=== PATIENT | male | born 1960 | race Caucasian/White ===

== ENCOUNTER 2017-07-29 12:36 | Outpatient (CLI) | payer BC ==
--- NOTE | 2017-07-29 13:43 | CT ---
CT ARTERIOGRAM NECK WITH IV CONTRAST AND 3D MIP IMAGING: HISTORY: Carotid bruit. Vascular disease. FINDINGS: There is normal branching of the great vessels from the aortic arch with mild calcification. Good fl ow is demonstrated into each carotid and vertebral system. On the right, there is calcification at the carotid bifurcation resulting in moderate stenosis of the external carotid artery. The internal carotid artery is widely patent. On the left, the vessels are patent at the bifurcation. Approximately 1.9 cm from the bifurcation, t here is a focal area of severe plaque and calcification resulting in near-complete occlusion. Good f low is demonstrated into the more distal internal carotid artery. IMPRESSION: 1. Short-segment focus of critical stenosis within the mid left cervical internal carotid artery. P lease consider vascular intervention. 2. Otherwise, very little calcification or plaque. POS: [facility]
[2017-07-29] MEDS ORDERED: Iopamidol 370 76% 100 ML VIAL ONE (17:07)
== END 2017-07-29 12:37 | disposition home or self-care (01) ==
LOC: CT 12:36
PROVIDERS: ATTEND Internal Medicine Cardiovascular Disease
DX: R09.89 Other specified symptoms and signs involving the circulatory and respiratory systems (principal); I65.22 Occlusion and stenosis of left carotid artery
CPT/HCPCS: 70498

== ENCOUNTER 2017-08-05 09:09 | Inpatient (IN) | payer BC ==
[2017-08-05 09:45] LABS: #Basophils 0.1 thou/uL (0.0-0.2); #Eosinphils 0.2 thou/uL (0.0-0.7); #Lymphocytes 1.7 thou/uL (1.20-3.40); #Neutrophils 4.3 thou/uL (1.40-6.50); %Basophils 1.1 % (0.0-1.0); %Eosinophils 2.9 % (0.0-10.0); %Lymphocytes 23.1 % (21.0-51.0); %Monocytes 13.8 % (0.0-10.0); %Neutrophils 59.2 % (42.0-75.0); Hemoglobin 15.9 g/dL (14.0-18.0); Mean Corpuscular Hemoglobin 33.3 pg (27.0-31.0); Mean Corpuscular Volume 97.8 fl (80.0-94.0); Platelet Count 190 thou/uL (130-400); RBC Distribution Width 11.8 % (11.5-14.5); Red Blood Cell (RBC) Count 4.79 mill/uL (4.70-6.10); White Blood Cell (WBC) Count 7.2 thou/uL (4.8-10.8)
[2017-08-05 10:06] LABS: Anion Gap 9 mmol/L (10-20); BUN (Urea Nitrogen) 11 mg/dL (8.4-25.7); Calc. Creatinine Clearance 129 mL/min (70-130); Calcium 9.1 mg/dL (7.8-10.44); Carbon Dioxide 28 mmol/L (22-29); Chloride 108 mmol/L (98-107); Estimated GFR-MDRD Greater than 90; Glucose 100 mg/dL (70-105); Potassium 4.1 mmol/L (3.5-5.1); Sodium 141 mmol/L (136-145)
[2017-08-05] MEDS ORDERED: CEFAZOLIN/Water 2 GM/20 ML SYRINGE ONE (10:14)
[2017-08-05] MEDS ORDERED: Midazolam HCl 2 mg/2 ml Vial ONE (10:42)
[2017-08-05] MEDS ORDERED: Protamine Sulfate 50 MG/5 ML VIAL ONE (11:09)
[2017-08-05] MEDS ORDERED: Heparin 5,000 UNITS/ML VIAL ONE (11:09)
[2017-08-05] MEDS ORDERED: Fentanyl 100 MCG/2 ML VIAL ONE ×3 (11:36→15:26)
--- NOTE | 2017-08-05 13:09 | OP ---
PREOPERATIVE DIAGNOSIS: Left carotid stenosis. POSTOPERATIVE DIAGNOSIS: Left carotid stenosis. PROCEDURE PERFORMED: Left carotid endarterectomy with bovine patch. SURGEON: Dr. Cole. ANESTHESIA: General. ESTIMATED BLOOD LOSS: Under 100 mL. PROCEDURE IN DETAIL: After adequate anesthesia had been obtained, the head was turned to the right. Ultrasound was used to dayday the skin and the patient prepped and draped. Incision was then made and carried through the platysma rotating sternocleidomastoid muscle. Facial vein was ligated, clipped and divided. The jugular vein was rotated laterally. The hypoglossal nerve was not visualized. Vag us nerve was visualized and avoided. After heparinization, clamps were applied to the internal, exte rnal, and the common carotid artery. Arteriotomy performed beginning at the origin of the internal c arotid artery and extending distally through the plaque about 3 cm above the bifurcation. A 10-Frenc h shunt was then placed and there was excellent backbleeding. Endarterectomy was performed with sati sfactory tapering distally. Following completion of this, the area was thoroughly irrigated and any loose debris removed. A bovine patch was used to close the arteriotomy, following which, the shunt w as removed, vessels back flushed and forward flushed and the area was thoroughly irrigated with hepar in saline. Flow was then restored up the external and then internal carotid artery. Protamine was g iven to partially reverse the heparin and after obtaining good hemostasis, the wound was irrigated an d closed in layers.
[2017-08-05] MEDS ORDERED: Promethazine HCl 25 MG/ML VIAL SLOW IVP PRN (13:49)
[2017-08-05] MEDS ORDERED: Promethazine HCl 25 MG/ML VIAL IM PRN (13:49)
[2017-08-05] MEDS ORDERED: Ondansetron HCl/PF 4 MG/2 ML Vial IVP PRN ×2 (13:49→16:07)
--- NOTE | 2017-08-05 16:01 | EKG ---
Test Reason : PREOP Blood Pressure : / mmHG Vent. Rate : 061 BPM Atrial Rate : 061 BPM P-R Int : 000 ms QRS Dur : 150 ms QT Int : 486 ms P-R-T Axes : 000 -26 109 degrees QTc Int : 489 ms AV sequential or dual chamber electronic pacemaker When compared with ECG of 20-NOV-2011 08:06, Electronic ventricular pacemaker has replaced Sinus rhythm Confirmed by YEYO WAHL ([id number]) on 08/05/2017 4:00:49 PM Referred By: ATUL Confirmed By:YEYO WAHL
[2017-08-05] MEDS ORDERED: Acetaminophen 325 MG TAB PO PRN (16:07)
[2017-08-05] MEDS ORDERED: HYDROcodone/Acetaminophen 5/325 mg Tablet PO PRN (16:07)
[2017-08-05] MEDS ORDERED: Phenylephrine 10 MG/NS 250 ML 250 ML IVPB PRN (16:07)
[2017-08-05] MEDS ORDERED: Fentanyl 100 MCG/2 ML VIAL SLOW IVP PRN ×2 (16:07)
[2017-08-05] MEDS ORDERED: Sodium Chloride 0.9% 1,000 ML IV SCH (16:07)
[2017-08-05] MEDS ORDERED: hydrALAZINE 20 MG/ML VIAL SLOW IVP PRN (16:07)
[2017-08-05] MEDS ORDERED: Lidocaine 1% PF 5 ML VIAL ONE (17:04)
[2017-08-05] MEDS ORDERED: PROPOFOL 200 MG/20 ML VIAL ONE (17:04)
[2017-08-05] MEDS ORDERED: Heparin 10,000 UNITS/ 10 ML VIAL ONE (17:04)
[2017-08-05] MEDS ORDERED: Dexamethasone 20 MG/5 ML VIAL ONE (17:04)
[2017-08-05] MEDS ORDERED: Ondansetron HCl/PF 4 MG/2 ML Vial ONE (17:04)
[2017-08-05] MEDS: HYDROcodone/Acetaminophen 5/325 mg Tablet PO PRN ×2 (18:25→22:27)
[2017-08-05] MEDS: Carvedilol 25 MG TAB PO SCH (19:48)
[2017-08-05] MEDS ORDERED: Atorvastatin Calcium 40 MG TAB PO SCH (21:00)
[2017-08-05] MEDS: CEFAZOLIN/Water 2 GM/20 ML SYRINGE SLOW IVP SCH (22:28)
[2017-08-06] MEDS: CEFAZOLIN/Water 2 GM/20 ML SYRINGE SLOW IVP SCH (05:16)
[2017-08-06] MEDS: HYDROcodone/Acetaminophen 5/325 mg Tablet PO PRN (05:23)
--- NOTE | 2017-08-06 06:39 | DIS ---
HOSPITAL COURSE: The patient was admitted for elective left carotid endarterectomy. Postoperatively , he did well with no swelling and intact neurologic exam. He will be discharged home to 08/06/2017 to resume his home medicines, as well as with a prescription for tramadol as needed for pain. Discha rge and follow-up instructions have been given.
[2017-08-06] MEDS ORDERED: Clopidogrel Bisulfate 75 MG TAB PO SCH (09:00)
[2017-08-06] MEDS ORDERED: Aspirin 325 mg Enteric Coated Tablet PO SCH (09:00)
[2017-08-06] MEDS ORDERED: Lisinopril 10 MG TAB PO SCH (09:00)
[2017-08-06] MEDS: Carvedilol 25 MG TAB PO SCH (09:16)
[2017-08-06 09:17] VITALS: BP 136/83
[2017-08-06 10:25] VITALS: TEMP 98.5
== END 2017-08-06 10:20 | disposition home or self-care (01) | DRG 39 ==
LOC: SURG A 09:09 → CCU 17:28
PROVIDERS: ADMIT Thoracic Surgery (Cardiothoracic Vascular Surgery); ATTEND Thoracic Surgery (Cardiothoracic Vascular Surgery)
PROC: 03CL0ZZ Extirpation of Matter from Left Internal Carotid Artery, Open Approach (ICD-10-PCS; principal; 2017-08-05)
PROC: 03UL0KZ Supplement Left Internal Carotid Artery with Nonautologous Tissue Substitute, Open Approach (ICD-10-PCS; 2017-08-05)
DX: I65.22 Occlusion and stenosis of left carotid artery (principal); E78.2 Mixed hyperlipidemia; I65.29 Occlusion and stenosis of unspecified carotid artery; I25.10 Atherosclerotic heart disease of native coronary artery without angina pectoris
CPT/HCPCS: 36415; 80048; 85025; 93005; 93010; J1100; J1642; J1644; J2001; J2250; J2405; J2704; J2720; J3010

== ENCOUNTER 2017-12-22 06:42 | Day surgery (SDC) | payer BC ==
[2017-12-21 13:29] VITALS: BMI 29.7
--- NOTE | 2017-12-22 11:51 | OP ---
DATE OF PROCEDURE: 12/22/2017 SURGEON: Edison Simon M.D. PROCEDURE: Colonoscopy. ANESTHESIA: Premedication given per Anesthesiology Department. PREPROCEDURE DIAGNOSIS: Colon screening, average risk. POSTOPERATIVE DIAGNOSIS: Normal colon exam. PROCEDURE IN DETAIL: A written consent was obtained prior to procedure. After adequate sedation, a rectal exam was performed and was normal. Endoscope was advanced to the cecum. The quality of the b owel prep was good. The cecum, ascending colon, hepatic flexure, transverse colon, splenic flexure, descending colon, and rectosigmoid colon all appeared normal. Retroflexion in the rectal vault was n ormal. The patient tolerated the procedure well. ASSESSMENT: Normal colon exam. RECOMMENDATIONS: 1. Repeat colon screening in 10 years. 2. The patient is advised to inform of any change in bowel function or unusual bleeding.
[2017-12-22] MEDS ORDERED: PROPOFOL 200 MG/20 ML VIAL ONE (14:21)
== END 2017-12-22 10:37 | disposition home or self-care (01) ==
LOC: SDC 06:42
PROVIDERS: ATTEND Internal Medicine Gastroenterology
PROC: 0DJD8ZZ Inspection of Lower Intestinal Tract, Via Natural or Artificial Opening Endoscopic (ICD-10-PCS; principal; 2017-12-22)
DX: Z12.11 Encounter for screening for malignant neoplasm of colon (principal); I25.10 Atherosclerotic heart disease of native coronary artery without angina pectoris; K21.9 Gastro-esophageal reflux disease without esophagitis; Z88.2 Allergy status to sulfonamides; Z79.82 Long term (current) use of aspirin; Z79.899 Other long term (current) drug therapy
CPT/HCPCS: J2704

== ENCOUNTER 2018-09-16 07:42 | Observation (INO) | payer BC ==
--- NOTE | 2018-09-16 08:40 | RAD ---
PORTABLE CHEST: Date: 09/16/18 HISTORY: Chest pain. FINDINGS: Heart size is within normal limits for portable technique. An internal defibrillator device is presen t. The lungs are clear of infiltrates. There are no signs of failure. IMPRESSION: No active intrathoracic disease. POS: [facility]
[2018-09-16 08:51] LABS: Hemoglobin 15.5 g/dL (14.0-18.0); Mean Corpuscular HGB CONC 34.2 g/dL (32.0-36.0); Mean Corpuscular Hemoglobin 33.5 pg (27.0-31.0); Mean Platelet Volume 8.8 fL (7.4-10.4); Platelet Count 188 thou/uL (130-400); RBC Distribution Width 11.9 % (11.5-14.5); Red Blood Cell (RBC) Count 4.62 mill/uL (4.70-6.10); White Blood Cell (WBC) Count 8.8 thou/uL (4.8-10.8)
[2018-09-16 09:03] LABS: ALT (SGPT) 30 U/L (8-55); AST (SGOT) 28 U/L (5-34); Albumin 4.3 g/dL (3.5-5.0); Alkaline Phosphatase 48 U/L (40-150); Anion Gap 12 mmol/L (10-20); BUN (Urea Nitrogen) 12 mg/dL (8.4-25.7); Bilirubin, Total 0.5 mg/dL (0.2-1.2); CK (CPK) 131 U/L (30-200); Calc. Creatinine Clearance 0 mL/min (70-130); Calcium 9.6 mg/dL (7.8-10.44); Carbon Dioxide 27 mmol/L (22-29); Chloride 106 mmol/L (98-107); Estimated GFR-MDRD 86; Globulin 2.3 g/dL (2.4-3.5); Glucose 100 mg/dL (70-105); Lipase 81 U/L (8-78); Potassium 4.3 mmol/L (3.5-5.1); Protein, Total 6.6 g/dL (6.0-8.3); Sodium 141 mmol/L (136-145)
[2018-09-16 09:37] LABS: Band 4 % (5-11); Lymphocytes 21 % (21-51); MDiff Complete? YES; Monocytes 8 % (0-10); Neutrophil 67 % (42-75); Platelet Morphology Comment Appears Adequate
[2018-09-16 12:09] LABS: Troponin I Less than 0.010 ng/mL (< 0.028)
[2018-09-16 15:07] LABS: Troponin I Less than 0.010 ng/mL (< 0.028)
[2018-09-16] MEDS ORDERED: Acetaminophen 325 MG TAB PO PRN (15:30)
[2018-09-16] MEDS ORDERED: Ondansetron ODT 4 MG TAB PO PRN (15:30)
[2018-09-16] MEDS ORDERED: Nitroglycerin 0.4 MG TAB (25 Tab Bottle) PO PRN (15:30)
[2018-09-16] MEDS ORDERED: Ondansetron PF 4 MG/2 ML Vial IVP PRN (15:30)
[2018-09-16 16:40] VITALS: BMI 29.8
[2018-09-16] MEDS: Famotidine 20 MG TAB PO SCH (20:50)
[2018-09-16] MEDS: Carvedilol 25 MG TAB PO SCH (20:50)
[2018-09-16] MEDS: Lisinopril 10 MG TAB PO SCH (20:50)
[2018-09-16] MEDS ORDERED: Atorvastatin Calcium 40 MG TAB PO SCH (21:00)
--- NOTE | 2018-09-17 00:23 | HP ---
PRIMARY CARE PHYSICIAN: Dr. Lavell Wright. PRIMARY REMOTE CONTROL ASSEMBLER: Dr. Mclean. CHIEF COMPLAINT: Chest pain. HISTORY OF PRESENT ILLNESS: Mr. Martin is a pleasant 57-year-old male with past medical history of myocardial infarction, CAD with stents to the LAD back in 2006, hypertension, hyperlipidemia, and chronic systolic heart failure, who had presented to [facility] ER earlier today after he experienced some chest pain that had radiated to left scapula early this morning. He states chest pain started around 7:00 a.m. this morning when he was sitting at his desk at work. He states that this chest pain was similar to the chest pain that he had back in 2006 when he had his [place]. Workup in the emergency department included an EKG, which remained unchanged. Serial troponins were found to be negative x3. His chest pain and also back pain spontaneously resolved. He states prior to coming into the ER, he had taken a dose of his home aspirin 325 mg. Therefore, this was held in the emergency department. The patient has a history of AICD in place, he was also referred to Dr. Vargas in [place] regarding a possible heart transplant in the future. He states that he underwent heart catheterization with Dr. Mclean roughly 2 years ago, which showed no further vessel disease. He states that he also underwent an echocardiogram about 6 months ago, which showed an improved ejection fraction of about 30% to 35%. He also reports a history of carotid endarterectomy in July 2017 and no further complaints since. He had denied any headache, blurred vision, dizziness, currently he had denied any chest pain, shortness of breath, abdominal pain. No nausea or vomiting. He had also denied any numbness, tingling, or weakness in upper and lower extremities and also denies any edema. He states he has been taking his home medications as directed with no recent changes. Cardiology Services, Dr. Barger was then consulted due to the patient's strong cardiac history. However, due to the patient's unchanged EKG and normal troponins, Dr. Barger determined that the patient would undergo a stress test in the morning with further workup pending stress test. The patient will be admitted under observation and placed on telemetry overnight and he will be continued on his home medications with further changes as needed. REVIEW OF SYSTEMS: All other systems reviewed and found to be negative unless mentioned in HPI. PAST MEDICAL HISTORY: Myocardial infarction, CAD with stent to the LAD, hypertension, hyperlipidemia, and chronic systolic heart failure. PAST SURGICAL HISTORY: AICD placement, stent placement to LAD, carotid endarterectomy, bilateral eye surgery, and appendectomy. PAST PSYCHIATRIC HISTORY: None. PAST SOCIAL HISTORY: The patient denies any tobacco use, however, does admit to drinking about 1 to 2 drinks per day and denies any further illicit drug use. KNOWN ALLERGIES: Sulfa. CURRENT HOME MEDICATIONS: 1. Lisinopril 10 mg p.o. b.i.d. 2. Clopidogrel 75 mg p.o. daily. 3. Carvedilol 25 mg p.o. b.i.d. 4. Atorvastatin 40 mg p.o. at bedtime. 5. Aspirin 325 mg p.o. daily. PHYSICAL EXAMINATION: VITAL SIGNS: BP 157/79, pulse 64, respirations 16, temp 98.1 degrees Fahrenheit, and O2 saturations 95% on room air. GENERAL: The patient is awake, alert, and oriented x3. No acute distress noted. HEENT: Atraumatic and normocephalic. Pupils are round and reactive to light. Extraocular muscles intact. Moist mucous membranes noted. Oropharynx is clear without exudates or erythema. NECK: Soft and supple. Surgical scar noted on the left side. Nontender. CARDIOVASCULAR: Positive S1 and S2. Regular rate and rhythm. No murmur auscultated. RESPIRATORY: Clear to auscultation bilaterally. No wheezes, rales, or rhonchi. ABDOMEN: Soft and nontender. Bowel sounds present. No rebound. No rigidity noted. MUSCULOSKELETAL: Strength 5+ bilaterally upper and lower extremities. Moves all extremities equal. No edema noted. NEUROLOGIC: Cranial nerves 2 through 12 grossly intact. No focal deficits noted. Speech intact and normal. Gait not assessed. SKIN: Warm, dry, and intact. No rashes. No lesions. Surgical scar noted on left side of neck. PSYCHIATRIC: Good mood and affect. LABORATORY DATA: WBC 8.8, RBC 4.62, hemoglobin 15.5, and platelet 188. Sodium 141, potassium 4.3, anion gap 12, BUN 12, creatinine 0.91, estimated GFR 86, and glucose 100. Troponin 0.010 x3. DIAGNOSTIC IMAGING: Chest x-ray showed no acute intrathoracic disease. ASSESSMENT AND PLAN: 1. Chest pain. The patient will be placed on telemetry, serial troponins found to be negative x3. The patient with no EKG changes. AICD in place. We will obtain printout from his AICD for further evaluation. Cardiology Service is notified and Dr. Barger recommended stress test in the a.m., depending on stress test further workup pending. 2. History of myocardial infarction and coronary artery disease with stent to the left anterior descending, continue on the patient's home regimen. 3. Chronic systolic heart failure. Continue home regimen. 4. History of hypertension, currently stable. Continue on the patient's home regimen and monitor vital signs closely. 5. Hyperlipidemia. Continue on the patient's home statin. We will check a lipid panel in the a.m. 6. Code status. Full code. DISPOSITION: Pending further workup and clinical findings. If the patient is stable on monitor, with normal findings on AICD and a normal stress test in the morning, the patient will likely be discharged with close outpatient followup with his PCP and primary sugar plantation manager, Dr. Mclean as outpatient. Job ID: [id number]
[2018-09-17 07:12] LABS: #Basophils 0.1 thou/uL (0.0-0.2); #Eosinphils 0.2 thou/uL (0.0-0.7); #Lymphocytes 1.9 thou/uL (1.20-3.40); #Monocytes 1.1 thou/uL (0.11-0.59); #Neutrophils 4.6 thou/uL (1.40-6.50); %Basophils 1.3 % (0.0-1.0); %Eosinophils 2.2 % (0.0-10.0); %Monocytes 14.1 % (0.0-10.0); %Neutrophils 58.5 % (42.0-75.0); Hemoglobin 15.1 g/dL (14.0-18.0); Mean Corpuscular HGB CONC 34.2 g/dL (32.0-36.0); Mean Corpuscular Hemoglobin 33.8 pg (27.0-31.0); Mean Corpuscular Volume 99.1 fL (78.0-98.0); Mean Platelet Volume 8.5 fL (7.4-10.4); Platelet Count 182 thou/uL (130-400); RBC Distribution Width 11.9 % (11.5-14.5); Red Blood Cell (RBC) Count 4.45 mill/uL (4.70-6.10); White Blood Cell (WBC) Count 7.9 thou/uL (4.8-10.8)
[2018-09-17 07:38] LABS: Anion Gap 8 mmol/L (10-20); BUN (Urea Nitrogen) 10 mg/dL (8.4-25.7); Calc. Creatinine Clearance 120 mL/min (70-130); Calcium 9.1 mg/dL (7.8-10.44); Carbon Dioxide 30 mmol/L (22-29); Cardiac Risk 3.2 (Less than 4.5); Chloride 106 mmol/L (98-107); Cholesterol 142 mg/dl (< 200 Desired); Estimated GFR-MDRD Greater than 90; Glucose 90 mg/dL (70-105); HDL Cholesterol 44 mg/dL (>60 Neg Risk); LDL Cholesterol, Calculated 66 mg/dL; Potassium 4.3 mmol/L (3.5-5.1); Sodium 140 mmol/L (136-145); Triglycerides 160 mg/dL (Less than 150)
[2018-09-17] MEDS: Famotidine 20 MG TAB PO SCH (08:15)
[2018-09-17] MEDS: Lisinopril 10 MG TAB PO SCH (08:15)
[2018-09-17] MEDS ORDERED: Enoxaparin Sodium 40 MG/0.4 ML SYRINGE SC SCH (09:00)
[2018-09-17] MEDS ORDERED: Aspirin 325 mg Enteric Coated Tablet PO SCH (09:00)
[2018-09-17] MEDS ORDERED: Clopidogrel Bisulfate 75 MG TAB PO SCH (09:00)
[2018-09-17] MEDS ORDERED: ADENOSINE 60 MG/20 ML VIAL ONE (09:16)
--- NOTE | 2018-09-17 13:01 | NM ---
[facility] Cardiac myocardial perfusion SPECT Ejection fraction study Wall motion study: 09/17/2018 HISTORY: 57-year-old male with prior myocardial infarction, coronary artery disease, congestive heart failure, hypertension, and dyslipidemia, presents with chest pain. TECHNIQUE: Number of days: 1 Rest study: 9.5 mCi of technetium 99m-sestamibi. Pharmacologic stress: 48.2 mg adenosine Stress study: 30.0 mCi technetium 99m-sestamibi. FINDINGS: Cardiac (myocardial perfusion) SPECT: There is a large, contiguous fixed defect involving the anterior wall, anteroseptal, septal, and apic al regions consistent with scar/infarction. No reversible perfusion defect is identified. Ejection fraction study: Left ventricular ejection fraction is 20% Wall motion study: Global hypokinesis. IMPRESSION: 1. Large infarction/scar involving much of the left ventricular myocardium. 2. Very low left ventricular ejection fraction of 20%. 3. Diffuse, severe hypokinesis. 4. No reversible ischemia identified.
[2018-09-17] MEDS: Carvedilol 25 MG TAB PO SCH (13:22)
[2018-09-17 16:07] VITALS: BP 143/83; TEMP 98.6
--- NOTE | 2018-09-22 14:28 | STRESS ---
Acquisition Time: 2018-09-17 10:08:37 Total Exercise Time: 00:04:00 Test Indications: CHEST PAIN Medications: Protocol: ADENOSINE Max HR: 080 BPM 49% of Pred: 162 BPM Max BP: 140/078 mmHG Max Work Load: 1.0 METS RESTING ECG: VENTRICULAR PACED AT 63 BPM SYMPTOMS: FLUSHED NORMAL BP RESPONSE ECTOPY: OCCASIONAL PVC'S ECG STRESS: NO SIGNIFICANT CHANGES INTERPRETATION: INDETERMINATE ECG/AWAIT NUCLEAR IMAGES FOR DEFINITIVE DIAGNOSIS Confirmed by JEREMY ALVAREZ ELLEN ([id number]) on 09/22/2018 2:27:58 PM Referred By: JEREMY PATEL Confirmed By:ELIN ALVAREZ PA-C
== END 2018-09-17 16:57 | disposition home or self-care (01) ==
LOC: ERS 07:42 → ERHOLD 10:20 → 2SW 15:54
PROVIDERS: ADMIT Internal Medicine; ATTEND Internal Medicine
DX: R07.9 Chest pain, unspecified (principal); I25.2 Old myocardial infarction; I25.10 Atherosclerotic heart disease of native coronary artery without angina pectoris; I11.0 Hypertensive heart disease with heart failure; I50.22 Chronic systolic (congestive) heart failure; E78.5 Hyperlipidemia, unspecified; Z95.810 Presence of automatic (implantable) cardiac defibrillator; Z95.5 Presence of coronary angioplasty implant and graft; Z90.49 Acquired absence of other specified parts of digestive tract; Z88.2 Allergy status to sulfonamides; Z79.02 Long term (current) use of antithrombotics/antiplatelets; Z79.82 Long term (current) use of aspirin; Z79.899 Other long term (current) drug therapy; Z98.890 Other specified postprocedural states
CPT/HCPCS: 36415; 71045; 78452; 80048; 80053; 80061; 82550; 83690; 84484; 85025; 90471; 90732; 93005; 93017; 94760; 96372; A9500; G0009; G0378; J0153; J1650

== ENCOUNTER 2019-05-14 18:38 | Inpatient (IN) | payer BC ==
[2019-05-14 19:20] LABS: Hemoglobin 16.5 g/dL (14.0-18.0); Mean Corpuscular HGB CONC 34.2 g/dL (32.0-36.0); Mean Corpuscular Hemoglobin 32.8 pg (27.0-31.0); Mean Corpuscular Volume 96.2 fL (78.0-98.0); Mean Platelet Volume 8.9 fL (7.4-10.4); Platelet Count 181 thou/uL (130-400); RBC Distribution Width 11.6 % (11.5-14.5); Red Blood Cell (RBC) Count 5.01 mill/uL (4.70-6.10); White Blood Cell (WBC) Count 10.4 thou/uL (4.8-10.8)
[2019-05-14 19:29] LABS: ALT (SGPT) 62 U/L (8-55); AST (SGOT) 50 U/L (5-34); Albumin 4.5 g/dL (3.5-5.0); Alkaline Phosphatase 62 U/L (40-110); Anion Gap 15 mmol/L (10-20); BUN (Urea Nitrogen) 13 mg/dL (8.4-25.7); Bilirubin, Total 0.6 mg/dL (0.2-1.2); Calc. Creatinine Clearance 0 mL/min (70-130); Calcium 9.5 mg/dL (7.8-10.44); Carbon Dioxide 25 mmol/L (22-29); Chloride 104 mmol/L (98-107); Estimated GFR-MDRD 81; Globulin 3.2 g/dL (2.4-3.5); Glucose 97 mg/dL (70-105); Potassium 4.1 mmol/L (3.5-5.1); Protein, Total 7.7 g/dL (6.0-8.3); Sodium 140 mmol/L (136-145)
[2019-05-14 19:38] LABS: Band 4 % (5-11); Eosinophils 4 % (0-10); Lymphocytes 24 % (21-51); MDiff Complete? YES; Monocytes 12 % (0-10); Neutrophil 50 % (42-75); Platelet Morphology Comment Appears Adequate; RBC Morphology Normal; Reactive Lymphocytes 5 % (0-10)
--- NOTE | 2019-05-14 20:05 | RAD ---
RADIOGRAPH CHEST 1 VIEW: DATE: 05/14/2019 HISTORY: 58-year-old male with cardiac dysrhythmia. Activation of defibrillator. FINDINGS: There are no airspace densities, pulmonary edema, pneumothorax, or cardiomegaly. The lateral costophr enic angles are sharp. Left subclavian triple lead AICD. Old, healed right midclavicular fracture deformity. IMPRESSION: 1. No acute cardiopulmonary findings. 2. Automatic implantable cardioverter-defibrillator.
[2019-05-14] MEDS ORDERED: Acetaminophen 325 MG TAB PO PRN (20:43)
[2019-05-14] MEDS ORDERED: Acetaminophen 650 MG Suppository PR PRN (20:43)
[2019-05-14] MEDS ORDERED: Nitroglycerin 0.4 MG TAB (25 Tab Bottle) SL PRN (20:45)
[2019-05-14] MEDS ORDERED: Clopidogrel Bisulfate 75 MG TAB PO SCH (21:00)
--- NOTE | 2019-05-14 21:20 | HP ---
PRIMARY CARE PROVIDER: Ari Childers MD FOOD AND BEVERAGE ASSISTANT: Dr. Mclean. CHIEF COMPLAINT: Electric shock from defibrillator. HISTORY OF PRESENT ILLNESS: Mr. Martin is a pleasant 58-year-old gentleman, who was seen at [facility] on May 14, 2019. He has a history of cardiomyopathy, he had defibrillator placed in 2008, replaced about three years ago. He was hospitalized at this facility in September 2018. He had a nuclear stress test at that time, which showed large infarctions/eschar involving much of the left ventricular myocardium, left ventricular ejection fraction of 20% and diffuse severe hypokinesis with no reversible ischemia identified. Patient reports that he was doing well following discharge from the hospital. This evening, he was sitting in his lawn chair, eating dinner, and watching TV when his head felt that it was "off balance." Patient also reports having tunnel vision. He felt like passing out. He was about to call his to take him to the emergency room when he received electric shock from the defibrillator. Patient has not had a recurrence of the symptoms. He reports that right now he feels fine. REVIEW OF SYSTEMS: All systems were reviewed and found to be negative. PAST MEDICAL HISTORY: Myocardial infarction, hypertension, dyslipidemia, congestive heart failure, and cardiomyopathy. PAST SURGICAL HISTORY: Coronary stent placement, carotid artery surgery, bilateral eye surgery, appendectomy, and defibrillator placement. FAMILY HISTORY: Significant for of his paternal grandfather in his 40s from myocardial infarction, of his father at age 51 from myocardial infarction, and of his brother at age 51 from myocardial infarction. ALLERGIES: SULFA. CURRENT MEDICATIONS: 1. Plavix 75 mg daily. 2. Lipitor 20 mg daily. 3. Coreg 25 mg 2 times a day. 4. Lisinopril 20 mg 2 times a day. 5. Aspirin 325 mg daily. 6. Benadryl 25 mg daily. 7. Pepcid as needed. SOCIAL HISTORY: Patient denies tobacco use, alcohol use, or recreational drug use. PHYSICAL EXAMINATION: GENERAL: On examination, Mr. Martin is awake and alert, not in acute distress. VITAL SIGNS: Blood pressure is 160/90, pulse 73, respiratory rate 14, and oxygen saturation 97% on room air. He is afebrile. EYES: No scleral icterus, no conjunctival pallor. ENT: Moist mucosal membranes. No oropharyngeal erythema or exudates. NECK: Supple, nontender, trachea is midline. RESPIRATORY: Accessory muscles of breathing are not active. Chest wall movements are symmetric bilaterally. Lungs are clear to auscultation without wheeze, rhonchi, or crepitations. CARDIOVASCULAR: S1 and S2 are heard, regular. Peripheral pulses palpable. ABDOMEN: Soft, nontender, bowel sounds are heard. NEUROLOGIC: Cranial nerves 2 through 12 are intact. MUSCULOSKELETAL: Power is 5/5 in all 4 extremities. LYMPHATIC: No cervical lymphadenopathy. SKIN: No rashes or subcutaneous nodules. PSYCHIATRIC: Normal mood, normal affect, patient is oriented to person, place, and time. LABORATORY DATA: Mr. Martin's labs and investigations were reviewed. I reviewed his electrocardiogram, which shows electronic ventricular paced rhythm. I also reviewed his chest x-ray, which does not show any pulmonary infiltrates. He also had his defibrillator interrogated. He reportedly had 7-second ventricular fibrillation which terminated with electric shock. He has an unremarkable CBC, elevated AST and ALT of 62, otherwise normal comprehensive metabolic profile and normal troponin I. ASSESSMENT AND PLAN: Mr. Martin is a pleasant 58-year-old gentleman, who was seen at [facility] on May 14, 2019. His problem list includes: 1. Ventricular fibrillation: Patient reportedly had ventricular fibrillation which was terminated with electric shock. Emergency room physician discussed this case with model builder on-call. Patient is being admitted to the hospital for telemetry monitoring and Cardiology Service consult as inpatient. His home medications will be resumed. 2. Hypertension: We will resume patient's home medications, monitor vital signs, and titrate antihypertensives as needed. 3. Dyslipidemia: Continue statin. 4. Transaminitis: Patient has isolated transaminitis. We will check CK level to rule out rhabdomyolysis. Many thanks for allowing me to participate in your patient's care. Please feel free to contact me with any questions or concerns. LEVEL OF RISK: High. LEVEL OF COMPLEXITY: High. Job ID: [id number]
[2019-05-14] MEDS: Atorvastatin Calcium 20 MG TAB PO SCH (22:02)
[2019-05-14] MEDS: Lisinopril 10 MG TAB PO SCH (22:02)
[2019-05-14] MEDS: Carvedilol 25 MG TAB PO SCH (22:02)
[2019-05-14] MEDS: Fish Oil 1,000 MG CAP PO SCH (22:02)
[2019-05-14 22:16] LABS: Troponin I 0.137 ng/mL (< 0.028)
[2019-05-15 00:20] VITALS: BMI 30.8
[2019-05-15 01:18] LABS: Troponin I 0.185 ng/mL (< 0.028)
[2019-05-15 05:21] LABS: Anion Gap 9 mmol/L (10-20); BUN (Urea Nitrogen) 11 mg/dL (8.4-25.7); Calc. Creatinine Clearance 100 mL/min (70-130); Calcium 8.6 mg/dL (7.8-10.44); Carbon Dioxide 28 mmol/L (22-29); Chloride 107 mmol/L (98-107); Estimated GFR-MDRD 76; Glucose 93 mg/dL (70-105); Potassium 3.8 mmol/L (3.5-5.1); Sodium 140 mmol/L (136-145)
[2019-05-15 05:22] LABS: Eosinophils 6 % (0-10); Hemoglobin 14.5 g/dL (14.0-18.0); Lymphocytes 30 % (21-51); MDiff Complete? YES; Mean Corpuscular HGB CONC 33.4 g/dL (32.0-36.0); Mean Corpuscular Hemoglobin 32.3 pg (27.0-31.0); Mean Corpuscular Volume 96.6 fL (78.0-98.0); Mean Platelet Volume 8.9 fL (7.4-10.4); Monocytes 12 % (0-10); Neutrophil 52 % (42-75); Platelet Count 155 thou/uL (130-400); Platelet Morphology Comment Appears Adequate; RBC Distribution Width 11.4 % (11.5-14.5); Red Blood Cell (RBC) Count 4.49 mill/uL (4.70-6.10); White Blood Cell (WBC) Count 8.4 thou/uL (4.8-10.8)
[2019-05-15 05:27] LABS: ALT (SGPT) 54 U/L (8-55); AST (SGOT) 39 U/L (5-34); Albumin 3.7 g/dL (3.5-5.0); Alkaline Phosphatase 49 U/L (40-110); Bilirubin, Direct 0.2 mg/dL (0.1-0.3); Bilirubin, Total 0.7 mg/dL (0.2-1.2); Protein, Total 6.1 g/dL (6.0-8.3)
[2019-05-15] MEDS ORDERED: Enoxaparin Sodium 40 MG/0.4 ML SYRINGE SC SCH (09:00)
[2019-05-15] MEDS ORDERED: Aspirin 325 MG TAB PO SCH (09:00)
[2019-05-15] MEDS: Lisinopril 10 MG TAB PO SCH ×2 (09:48→21:30)
[2019-05-15] MEDS: Carvedilol 25 MG TAB PO SCH ×2 (09:49→21:30)
[2019-05-15] MEDS: Fish Oil 1,000 MG CAP PO SCH ×2 (09:49→21:30)
[2019-05-15] MEDS ORDERED: Communication Order-Pharmacy FS SCH (10:30)
[2019-05-15] MEDS ORDERED: Heparin (Artline) 500 ML ONE ×2 (11:06→12:30)
[2019-05-15] MEDS ORDERED: Midazolam HCl 2 mg/2 ml Vial ONE (12:07)
[2019-05-15] MEDS ORDERED: Heparin 10,000 UNITS/1 ML VIAL ONE (12:30)
[2019-05-15] MEDS ORDERED: Nitroglycerin 100MG/250ML BOT 250 ML ONE (12:36)
[2019-05-15] MEDS ORDERED: TICAGRELOR 90 MG TABLET ONE (13:25)
[2019-05-15] MEDS ORDERED: Iopamidol 370 76% 50 ML VIAL FS ONE (15:04)
[2019-05-15] MEDS ORDERED: Iopamidol 370 76% 100 ML VIAL ONE (15:04)
--- NOTE | 2019-05-15 18:20 | PDOC.HOSPP ---
- Subjective Encounter Date: 05/15/19 Encounter Time: 08:20 Subjective: Pt seen for followup re: NSVT. States he feels well, no complaints. No recurrence of yesterday's symptoms. - Objective Vital Signs & Weight: Vital Signs (12 hours) Temp Pulse Resp BP Pulse Ox 05/15/19 17:25 98 F 65 16 142/88 H 97 05/15/19 11:45 98 F 65 18 136/82 96 05/15/19 07:35 97.9 F 63 18 142/81 H 96 Weight Weight 196 lb 14.4 oz I&O: 05/14/19 05/15/19 05/16/19 06:59 06:59 06:59 Intake Total 1380 Output Total 1175 Balance 205 Result Diagrams: 05/15/19 04:25 05/15/19 04:25 Additional Labs: Labs and MARs reviewed by me EKG Reviewed by me: Yes (16-beat V. tach) Hospitalist ROS - Review of Systems Respiratory: denies: cough, shortness of breath, SOB with excertion, pleuritic pain, wheezing, other Cardiovascular: denies: chest pain, palpitations, orthopnea, paroxysmal noc. dyspnea, edema, light headedness - Medication Medications: Active Medications Generic Name Dose Route Start Last Admin Trade Name Freq PRN Reason Stop Dose Admin Aspirin 325 mg 05/15/19 09:00 05/15/19 09:48 Aspirin PO 325 mg DAILY RIGO Administration Atorvastatin Calcium 20 mg 05/14/19 21:00 05/14/19 22:02 Lipitor PO 20 mg HS RIGO Administration Carvedilol 25 mg 05/14/19 21:00 05/15/19 09:49 Coreg PO 25 mg BID RIGO Administration Fish Oil 1,000 mg 05/14/19 21:00 05/15/19 09:49 Fish Oil PO 1,000 mg BID RIGO Administration Lisinopril 10 mg 05/14/19 21:00 05/15/19 09:48 Zestril PO 10 mg BID RIGO Administration - Exam General - other findings: Obese Eye: anicteric sclera ENT: no oropharyngeal lesions Neck: supple Heart: RRR, no rubs Respiratory: CTAB Gastrointestinal: soft, non-tender Neurological: cranial nerve grossly intact Musculoskeletal: normal strength Psychiatric: normal affect, normal behavior Hosp A/P (1) Ventricular tachycardia Code(s): I47.2 - VENTRICULAR TACHYCARDIA Status: Acute (2) HTN (hypertension) Code(s): I10 - ESSENTIAL (PRIMARY) HYPERTENSION Status: Chronic (3) Dyslipidemia Code(s): E78.5 - HYPERLIPIDEMIA, UNSPECIFIED Status: Chronic - Plan plan discussed w/ family Continue aspirin and Lipitor. HTN reasonably controlled. Awaiting cardiology and EP services input.
[2019-05-15] MEDS: TICAGRELOR 90 MG TABLET PO SCH (21:30)
[2019-05-15] MEDS: Atorvastatin Calcium 20 MG TAB PO SCH (21:30)
--- NOTE | 2019-05-15 23:29 | CON ---
DATE OF CONSULTATION: PRIMARY CARE DOCTOR: Dr. Lavell Baptiste. PRIMARY WAREHOUSE MAN: Dr. Roxy Mclean. REASON FOR CARDIOLOGY CONSULT: History of VFib and electric shock from defibrillator. HISTORY OF PRESENT ILLNESS: Mr. Martin is a very pleasant 58-year-old male with a significant history of coronary artery disease with stent placement in 2014, ischemic cardiomyopathy with single-chamber defibrillator in 2007 and upgraded to the Bi-V AICD in December 2016, hypertension, hyperlipidemia and chronic systolic heart failure. The patient was doing well until night of May 14, 2019. When he was eating, he started having feeling of lightheadedness and his vision is getting narrower and he had from his defibrillator. Prior to the event, the patient denied any chest pain, heaviness, tightness, shortness of breath, dizziness, lightheadedness or any other cardiac complaints. The patient was transferred to the emergency department and the patient's defibrillator was interrogated, which showing the patient had ventricular fibrillation. Next day, on May 15, during the initial Cardiology assessment, the patient denies any chest pain, tightness, heaviness or any other cardiac complaints. The patient had a cardiac catheterization in February 2015 with stent placement in LAD. The patient had a stress test in September 2018 with global hypokinesis and EF of 20%. The patient had echocardiogram done at [facility] for heart transplant with EF of 30%. The patient had a history of left carotid endarterectomy by Dr. Cole in July 2017. PAST MEDICAL HISTORY: Myocardial infarction, coronary artery disease with history of myocardial infarction and stent placement, hypertension, dyslipidemia, systolic heart failure, and ischemic cardiomyopathy. PAST SURGICAL HISTORY: Stent placement in LAD in February 2015, carotid endarterectomy in July 2017, bilateral eye surgery, appendectomy, and defibrillator placement. FAMILY HISTORY: The patient's paternal grandfather due to SC at the age of 40s. The patient's father due to the myocardial infarction at the age of 51 and his brother due to myocardial infarction at the age of 51. SOCIAL HISTORY: The patient is . He is living with his . The patient denied tobacco, EtOH or illicit drug abuse. ALLERGIES: HE IS ALLERGIC TO SULFA. HOME MEDICATIONS: 1. [place]-3. 2. Aspirin 325 mg once a day. 3. Lisinopril 10 mg twice a day. 4. Carvedilol 25 mg twice a day. 5. Plavix 75 mg once a day. 6. Nitroglycerin 0.4 mg sublingual as needed. 7. Benadryl 25 mg at bedtime. 8. Atorvastatin 40 mg once a day. REVIEW OF SYSTEMS: 12-point review of systems negative, otherwise mentioned in the HPI. PHYSICAL EXAMINATION: VITAL SIGNS: Blood pressure this morning was 142/81, temperature 97.6, pulse 63, respiratory rate 18, and O2 saturation 96% on room air. GENERAL: The patient is alert and oriented x4, not in acute distress. HEAD: Normocephalic and atraumatic. EYES: Extraocular muscle movement intact. ENT AND MOUTH: Oral and nasal mucosa moist without lesion. NECK: Supple. Normal range of motion. No JVD. RESPIRATORY: Clear to auscultate bilaterally. No wheezing, rales or rhonchi noted. CARDIOVASCULAR: Regular rate and rhythm. Normal S1 and S2. No S3 or S4. No significant murmur, hives or thrills noted. 2+ pulses in bilateral upper and lower extremities. No edema in the lower extremities. Carotid pulses are present without bruit or thrill noted. ABDOMEN: Soft and nontender. No mass to palpitate. Bowel sounds are present. SKIN: Warm and dry. No erythema, rash or lesion noted. MUSCULOSKELETAL: The patient is able to move all extremities. NEUROLOGIC: The patient is alert and oriented x4. Nonfocal. PSYCHIATRIC: The patient's mood is appropriate. LABORATORY DATA: WBC 8.4, hemoglobin 14.5, hematocrit 43.4, and platelet 155. Sodium 140, potassium 3.8, BUN 11, creatinine 1.0, and glucose 93. AST 39 and ALT 54. Troponin is 0.024, 0.137, and 0.185. DIAGNOSTIC DATA: Chest x-ray showed no acute cardiopulmonary finding. ASSESSMENT AND PLAN: 1. Status post electric shock by the automated implantable cardioverter-defibrillator for history of ventricular fibrillation. The patient will undergo the cardiac catheterization by Dr. Mclean today for further cardiac workup. 2. Ischemic cardiomyopathy with a biventricular automated implantable cardioverter-defibrillator . The patient's condition is stable at this moment. Again, the patient is going to undergo cardiac catheterization for further cardiac workup. 3. Chronic systolic heart failure. The patient's condition is stable at this moment. The patient is on waiting list for the heart transplant. 4. Coronary artery disease with stent placement in left anterior descending in February 2015. The patient is asymptomatic and the patient is going to undergo cardiac catheterization today. 5. Hypertension. Blood pressure is stable at this moment with current medication. Thank you very much for Cardiology Service to participate in care of this patient. We will follow along the patient's care team and make further recommendations as appropriate. Job ID: [id number]
--- NOTE | 2019-05-16 00:56 | CON ---
DATE OF CONSULTATION: 05/15/2019 INDICATION FOR CONSULTATION: A 58-year-old gentleman I have followed for many years. He has a history of cardiomyopathy, coronary artery disease, status post AICD implant several years ago. He has been evaluated for possible heart transplant with an echocardiogram by Dr. Vargas in [place] and has been relatively stable. No transplant has been indicated thus far and he had been doing relatively well. Last night prior to being admitted, he was sitting, having dinner and had no previous symptoms or anything, he was sitting in the table, had blurred vision, did not feel well and then all of a sudden was shocked by the defibrillator. Previous to that, he has had no significant arrhythmias. He had a couple episodes of some short 1-second runs of nonsustained ventricular tachycardia and then had sudden onset of ventricular fibrillation and was shocked by the device. He said he felt well afterwards, but came to the emergency room and was admitted and further evaluation has been undertaken. Due to his history of coronary artery disease, he has had a totally occluded left anterior descending artery in the past, which he underwent angioplasty and stent placement. He has had repeat further stents to the LAD due to further in-stent restenoses or progression of disease. He also has had a 50% stenosis of right coronary, which has been stable. The left circumflex was free of any significant disease. His echocardiogram showed ejection fraction anywhere between 20% to 40%. His last echocardiogram at [facility] in September of 2018 showed ejection fraction of about 30%. He had been doing very well with this device without any problems until he presented at this time and he was advised to undergo a cardiac catheterization for further evaluation to assure that his sudden onset of ventricular fibrillation was not due to progression of coronary artery disease or further occlusion of the left anterior descending artery. He was taken to the cardiac casting house laborer today where he underwent the procedure and was found to have a 90% in-stent restenoses of the left anterior descending artery and more disease distally at the end of the stent in the left anterior descending artery distally. He underwent angioplasty and stent placements. He underwent primary stent placement to the distal left anterior descending artery in the mid section, underwent repeat angioplasty and stent placement with drug coated stents. The mid to the left anterior descending artery stent was a 2.75 x 20 mm stent dilated up to 2.87 mm and the distal stent was a 2.5 x 12 mm stent, which was a primary stent placement dilated up to 2.57 mm. There was no residual stenosis and he tolerated the procedure well. There was a large 1st diagonal branch, which had a 90% ostial stenosis, which has been jailed by previous stents. He did have good filling of this vessel and hopefully this was not the etiology of the ventricular fibrillation. Should he have further episodes, this may be the etiology or he may have developed his ventricular fibrillation due to scar around the previous CT site in the anterior wall, which he suffered many years ago. His myocardial infarction I believe was back in 2006 or 2007, many years ago and he has been followed on a routine basis by myself as well as in [place]. For further evaluation for consultation, please refer the notes dictated by nurse practitioner, Anne Puentes. PAST MEDICAL HISTORY: As noted above. SOCIAL HISTORY: As noted above. FAMILY HISTORY: As noted above. REVIEW OF SYSTEMS: As noted above. MEDICATIONS: As noted above. PHYSICAL EXAMINATION: As noted above. ASSESSMENT AND PLAN: He has received a shock from his automatic implantable cardioverter defibrillator due to ventricular fibrillation and most likely this was due to progression of his coronary artery disease with severe stenosis of the left anterior descending artery. This is actually rather interesting since this area appears to be not viable any longer. It is actually akinetic, but apparently still has some viable tissue in this area and became irritable due to the significant stenosis in the left anterior descending artery. As noted, if he continues to have further episodes of ventricular tachycardia or ventricular fibrillation. He may need to undergo electrophysiological evaluation to determine whether or not this may be due to his re-entry phenomenon due to the scar formation around the previous myocardial infarction. His ejection fraction still appears to be about 25-30 percent at the cardiac catheterization and otherwise he tolerated this procedure well. We will continue to monitor the patient very carefully to look for further episodes of arrhythmias. He is status post AICD implant. He was upgraded to a biventricular ICD in 2017 and this has remained stable. His first stent to the LAD was in 2006. He has undergone a carotid endarterectomy in July of 2017 and underwent repeat angioplasty and stent placement in the left anterior descending artery in 2014. At this time, he remains stable. We will continue to monitor him on a very careful basis. Job ID: [id number]
[2019-05-16 04:59] LABS: #Basophils 0.1 thou/uL (0.0-0.2); #Eosinphils 0.2 thou/uL (0.0-0.7); #Lymphocytes 1.5 thou/uL (1.20-3.40); #Monocytes 1.1 thou/uL (0.11-0.59); #Neutrophils 5.3 thou/uL (1.40-6.50); %Basophils 0.7 % (0.0-1.0); %Eosinophils 2.9 % (0.0-10.0); %Lymphocytes 18.2 % (21.0-51.0); %Monocytes 13.4 % (0.0-10.0); %Neutrophils 64.8 % (42.0-75.0); Hemoglobin 15.1 g/dL (14.0-18.0); Mean Corpuscular HGB CONC 34.4 g/dL (32.0-36.0); Mean Corpuscular Hemoglobin 33.2 pg (27.0-31.0); Mean Corpuscular Volume 96.7 fL (78.0-98.0); Mean Platelet Volume 8.8 fL (7.4-10.4); Platelet Count 151 thou/uL (130-400); RBC Distribution Width 11.7 % (11.5-14.5); Red Blood Cell (RBC) Count 4.56 mill/uL (4.70-6.10); White Blood Cell (WBC) Count 8.1 thou/uL (4.8-10.8)
[2019-05-16 05:26] LABS: ALT (SGPT) 52 U/L (8-55); AST (SGOT) 38 U/L (5-34); Albumin 3.7 g/dL (3.5-5.0); Alkaline Phosphatase 51 U/L (40-110); Anion Gap 9 mmol/L (10-20); BUN (Urea Nitrogen) 8 mg/dL (8.4-25.7); Calc. Creatinine Clearance 121 mL/min (70-130); Calcium 8.6 mg/dL (7.8-10.44); Carbon Dioxide 27 mmol/L (22-29); Chloride 108 mmol/L (98-107); Estimated GFR-MDRD Greater than 90; Globulin 2.4 g/dL (2.4-3.5); Glucose 92 mg/dL (70-105); Potassium 4.4 mmol/L (3.5-5.1); Protein, Total 6.1 g/dL (6.0-8.3); Sodium 140 mmol/L (136-145)
[2019-05-16] MEDS ORDERED: Aspirin 81 mg Enteric Coated Tablet PO SCH (09:00)
[2019-05-16] MEDS: TICAGRELOR 90 MG TABLET PO SCH (09:01)
[2019-05-16] MEDS: Lisinopril 10 MG TAB PO SCH (09:02)
[2019-05-16] MEDS: Carvedilol 25 MG TAB PO SCH (09:02)
[2019-05-16] MEDS: Fish Oil 1,000 MG CAP PO SCH (09:02)
--- NOTE | 2019-05-16 09:17 | PDOC.CPN ---
- Subjective Date: 05/16/19 Time: 09:25 Interval history: The pt seen and examined. No overnight events. No cardiac complaints. - Objective Allergies/Adverse Reactions: Allergies Allergy/AdvReac Type Severity Reaction Status Date / Time Sulfa (Sulfonamide Allergy Intermediate Hives Verified 05/14/19 21:53 Antibiotics) Visit Medications: Current Medications Acetaminophen (Tylenol) 650 mg PO Q4H PRN PRN Reason: Headache/Fever/Mild Pain (1-3) Acetaminophen (Tylenol) 650 mg TN Q4H PRN PRN Reason: Headache/Fever/Mild Pain (1-3) Aspirin (Ecotrin) 81 mg PO DAILY [facility] Last Admin: 05/16/19 09:02 Dose: 81 mg Atorvastatin Calcium (Lipitor) 20 mg PO HS [facility] Last Admin: 05/15/19 21:30 Dose: 20 mg Carvedilol (Coreg) 25 mg PO BID [facility] Last Admin: 05/16/19 09:02 Dose: 25 mg Fish Oil (Fish Oil) 1,000 mg PO BID [facility] Last Admin: 05/16/19 09:02 Dose: 1,000 mg Lisinopril (Zestril) 10 mg PO BID [facility] Last Admin: 05/16/19 09:02 Dose: 10 mg Nitroglycerin (Nitrostat) 0.4 mg SL Q5MIN PRN PRN Reason: Chest Pain Ticagrelor (Brilinta) 90 mg PO BID [facility] Last Admin: 05/16/19 09:01 Dose: 90 mg Vital Signs & Weight: Vital Signs Temp Pulse Resp BP Pulse Ox 05/16/19 07:20 98.3 F 68 18 143/83 H 98 05/16/19 03:06 98 F 70 13 138/68 97 05/16/19 01:00 98.2 F 59 L 16 139/75 96 Weight 196 lb 14.4 oz - Physical Exam General: alert & oriented x3 Cardiac: regular rate and rhythm, S1/S2 Lungs: clear to auscultation Neuro: cranial nerve 2-12 intact Abdomen: unremarkable Extremities: no cyanosis Skin: clear, other (Rt Fem with small hematoma, but no mass to palpate.) - Labs Result Diagrams: 05/16/19 04:02 05/16/19 04:02 Troponin/CKMB Troponin I 0.185 ng/mL (< 0.028) H 05/15/19 00:46 - Telemetry Sinus rhythms and dysrhythmias: sinus rhythm - Assessment/Plan Assessment/Plan: 1. Ventricular tachycardia/fib with s/p AICD discharge x1 - the pt will f/u with EP as outpt 2. CAD with S/p TIBURCIO x 2 in distal and mid LAD on 05/15/2019 (with hx of stent placement in LAD in 2014) - On bblocker, ASA, Statin; Brilinta 90mg BID 3. Ischemic CMY with AICD placement - waiting for heart transplant 4. Chronic Systolic HF - on bblocker, FLORENCIA; No SOB, edema, or ABD bloating without diuretic; cont. to monitor 5. HTN - stable 6. HLD MAR reviewed. * LHC on 05/15/2019 with TIBURCIO x 2 in distal and mid LAD; 90% stenosis in OM1, akinetic apex and distal arterial wall * From Cardiac standpoint, the pt is stable to d/c home. * The prescription of Brilinta was already sent to his pharmacy * The pt will f/u with EP as outpt HANY * The pt will f/u with Dr Mclean' office on 06/16/2018 Pt. seen and eval. by me. I agree with the A/P by the PARTS CHASER. Hopefully the V-fib was due to restenosis of the LAd. If he has further V-fib. the start amiodarone and sooner f/u with EP. The V-fib may also be related to scar around the previous anterior [place]. If this is the case, he may be a candidate for ablation of the VTACH/Fib. focus.
[2019-05-16 11:19] VITALS: BP 139/73; TEMP 98.2
--- NOTE | 2019-05-17 01:15 | DIS ---
DATE OF ADMISSION: 05/14/2019 DATE OF DISCHARGE: 05/16/2019 PRIMARY CARE PROVIDER: Dr. Lavell Baptiste. DISCHARGE DIAGNOSES: 1. Ventricular tachycardia. 2. Coronary artery disease. 3. Ischemic cardiomyopathy. CONDITION OF PATIENT ON THE DAY OF DISCHARGE: Stable. I assessed Mr. Martin on the day of discharge. He denies any chest pain or shortness of breath. Vital signs are stable. S1 and S2 are heard, regular. Lungs are clear to auscultation bilaterally. HOSPITAL COURSE: Mr. Martin is a pleasant 58-year-old gentleman, who was admitted to [facility] on May 14, 2019, for ventricular fibrillation causing AICD firing. He was monitored on telemetry. He had ventricular tachycardia on telemetry. He was seen by Cardiology Service. He underwent cardiac catheterization. He underwent PCI with drug-eluting stents x2 in distal and mid LAD on May 15, 2019. He has been started on Brilinta. He is being discharged home in a stable condition. DISCHARGE MEDICATIONS: 1. Aspirin 325 mg daily. 2. Atorvastatin 20 mg at bedtime. 3. Coreg 25 mg 2 times a day. 4. Lisinopril 10 mg 2 times a day. 5. [place]-3 fatty acids one capsule daily. 6. Brilinta 90 mg 2 times a day. 7. Nitroglycerin 0.5 mg every 5 minutes as needed. On the day of discharge, he has white count 8100, hemoglobin 15.1, platelet count 151,000. Sodium 140, potassium 4.4, and creatinine 0.83. Many thanks for allowing me to participate in Mr. Martin's care. Please feel free to contact me with any questions or concerns. DISCHARGE DESTINATION: Home. TIME SPENT: Total amount of time spent coordinating this discharge: 18 minutes. Job ID: [id number]
--- NOTE | 2019-05-18 05:21 | PQF ---
[employer] Project Manager Crystal Reports Winform Viewer MARQUES BAEZ DAVID [id number] [id number] [id number] CLINICAL DOCUMENTATION CLARIFICATION FORM: POST DISCHARGE Addendum to original discharge summary date: ____ Late entry note date: __ DATE: 05/18/19 ATTN: Mendoza Blas Please exercise your independent, professional judgment in responding to the clarification form. Clinical indicators are provided on the bottom of this form for your review Can you please further clarify the etiology of ventricular fibrillation? Please check appropriate box(s): [ x ] Severe Progression of CAD [ ] in stent restenosis of the LAD [ ] Ventricular fibrillation of unknown etiology [ ] Ischemic cardiomyopathy [ ] Other diagnosis please specify [ ] Unable to determine In addition, please specify: Present on Admission (POA): [ x ] Yes [ ] No [ ] Unable to determine For continuity of documentation, please document condition throughout progress notes and discharge summary. Thank You. CLINICAL INDICATORS - SIGNS / SYMPTOMS / LABS Consult 05/15 p.2- "vfib and most likely this was due to progression of his coronary artery disease with severe stenosis to the left anterior descending artery" PN 05/16 p.3- "hopefully the vfib was due to restenosis of the LAD" Consult 05/15 p.1- "found to have a 90% in stent restenosis of the left anterior descending artery" Consult 05/15 p.1- "may have developed his ventricular fibrillation due to scar around the previous DE site" RISK FACTORS Hypertension- H and P pg.1 dyslipidemia- H and P pg.1 Congestive heart failure- H and P pg.1 CAD- Consult Dr. Nguyễn 05/14 pg.1 TREATMENTS: Cardiology Consult 05/15 Dr. Mclean Chest X ray 05/14 PTCA with TIBURCIO-Data Processing Systems Consultant Physician 05/14 LHC-Data Processing Systems Consultant Physician 05/14 IV Fluids- MAR 12/1 (This form is maintained as a part of the permanent medical record) 2014 [employer] All Rights Reserved Anant [email or web address] [not provided] MTDD
--- NOTE | 2019-05-18 21:15 | EKG ---
Test Reason : POST STENT Blood Pressure : / mmHG Vent. Rate : 060 BPM Atrial Rate : 060 BPM P-R Int : 000 ms QRS Dur : 160 ms QT Int : 528 ms P-R-T Axes : 103 247 113 degrees QTc Int : 528 ms AV sequential or dual chamber electronic pacemaker When compared with ECG of 14-MAY-2019 18:47, (Unconfirmed) Premature ventricular complexes are no longer Present Vent. rate has decreased BY 10 BPM Confirmed by Jak GEE ([id number]) on 05/18/2019 9:14:49 PM Referred By: MARLEN Confirmed By:Jak GEE
--- NOTE | 2019-05-18 21:22 | EKG ---
Test Reason : Blood Pressure : / mmHG Vent. Rate : 066 BPM Atrial Rate : 066 BPM P-R Int : 106 ms QRS Dur : 148 ms QT Int : 500 ms P-R-T Axes : 031 -24 101 degrees QTc Int : 524 ms Electronic ventricular pacemaker No previous ECGs available Confirmed by Jak GEE ([id number]) on 05/18/2019 9:22:07 PM Referred By: MARLEN Confirmed By:Jak GEE
== END 2019-05-16 13:09 | disposition home or self-care (01) | DRG 246 ==
LOC: ERS 18:38 → 2NO 21:48
PROVIDERS: ADMIT Internal Medicine; ATTEND Internal Medicine
PROC: 027035Z Dilation of Coronary Artery, One Artery with Two Drug-eluting Intraluminal Devices, Percutaneous Approach (ICD-10-PCS; principal; 2019-05-15)
PROC: 4A023N7 Measurement of Cardiac Sampling and Pressure, Left Heart, Percutaneous Approach (ICD-10-PCS; 2019-05-15)
PROC: B2151ZZ Fluoroscopy of Left Heart using Low Osmolar Contrast (ICD-10-PCS; 2019-05-15)
PROC: B2111ZZ Fluoroscopy of Multiple Coronary Arteries using Low Osmolar Contrast (ICD-10-PCS; 2019-05-15)
DX: I25.10 Atherosclerotic heart disease of native coronary artery without angina pectoris (principal); I49.01 Ventricular fibrillation; I50.22 Chronic systolic (congestive) heart failure; T82.855A Stenosis of coronary artery stent, initial encounter; I47.2 Ventricular tachycardia; Y71.2 Prosthetic and other implants, materials and accessory cardiovascular devices associated with adverse incidents; E78.5 Hyperlipidemia, unspecified; R74.0 Nonspecific elevation of levels of transaminase and lactic acid dehydrogenase [LDH]; I25.5 Ischemic cardiomyopathy; I11.0 Hypertensive heart disease with heart failure; Z95.810 Presence of automatic (implantable) cardiac defibrillator; I25.2 Old myocardial infarction; Z90.49 Acquired absence of other specified parts of digestive tract; Z95.5 Presence of coronary angioplasty implant and graft; Z88.2 Allergy status to sulfonamides; Z79.01 Long term (current) use of anticoagulants; Z79.82 Long term (current) use of aspirin; Z79.899 Other long term (current) drug therapy; Z79.02 Long term (current) use of antithrombotics/antiplatelets
CPT/HCPCS: 36415; 36416; 71045; 80048; 80053; 80076; 82550; 84484; 85025; 85347; 92928; 93005; 93010; 93458; 93798; 94760; 99152; 99153; C1769; C1874; C1887; C9600; J1644; J2250; Q9967

== ENCOUNTER 2020-12-09 14:41 | Outpatient (CLI) | payer BC | END 2020-12-09 14:42 | disposition home or self-care (01) | LOC: ULT 14:41 | PROVIDERS: ATTEND Nurse Practitioner Family | DX: S50.12XD Contusion of left forearm, subsequent encounter (principal) | CPT/HCPCS: 76999 ==

== ENCOUNTER 2022-05-28 13:06 | Outpatient (CLI) | payer BC | END 2022-05-28 13:07 | disposition home or self-care (01) | LOC: RAD 13:06 | PROVIDERS: ATTEND Physician Assistant Medical | DX: R10.84 Generalized abdominal pain (principal); K59.00 Constipation, unspecified | CPT/HCPCS: 74019 ==

== ENCOUNTER 2022-06-16 08:46 | Outpatient (CLI) | payer BC ==
[~2022-06-16 08:46] MED LIST: Iopamidol 370 76% 100 ML VIAL ONE
== END 2022-06-16 08:47 | disposition home or self-care (01) ==
LOC: CT 08:46
PROVIDERS: ATTEND Physician Assistant Medical
DX: R10.84 Generalized abdominal pain (principal); K56.7 Ileus, unspecified
CPT/HCPCS: 74178; 82565

== ENCOUNTER 2022-06-17 08:48 | Inpatient (IN) | payer BC ==
[2022-06-17] MEDS ORDERED: Fleet Enema 133 ML BOT PR SCH ×2 (09:15→10:30)
[2022-06-17 09:41] LABS: #Basophils 0.1 thou/uL (0.0-0.2); #Eosinphils 0.1 thou/uL (0.0-0.7); #Lymphocytes 1.3 thou/uL (1.20-3.40); #Monocytes 1.5 thou/uL (0.11-0.59); #Neutrophils 8.7 thou/uL (1.40-6.50); %Basophils 0.5 % (0.0-1.0); %Eosinophils 1.1 % (0.0-10.0); %Lymphocytes 11.4 % (21.0-51.0); %Monocytes 13.2 % (0.0-10.0); %Neutrophils 73.9 % (42.0-75.0); Mean Corpuscular HGB CONC 32.3 g/dL (32.0-36.0); Mean Corpuscular Hemoglobin 30.4 pg (27.0-31.0); Mean Corpuscular Volume 94.3 fl (78.0-98.0); Mean Platelet Volume 8.5 fL (7.4-10.4); Platelet Count 251 10x3/uL (130-400); RBC Distribution Width 12.4 % (11.5-14.5); Red Blood Cell (RBC) Count 5.27 mill/uL (4.70-6.10); White Blood Cell (WBC) Count 11.7 10x3/uL (4.8-10.8)
[2022-06-17 10:12] LABS: Anion Gap 17 mmol/L (10-20); BUN (Urea Nitrogen) 9 mg/dL (8.4-25.7); Calc. Creatinine Clearance 99 mL/min (70-130); Calcium 9.9 mg/dL (7.8-10.44); Carbon Dioxide 30 mmol/L (23-31); Chloride 94 mmol/L (98-107); Estimated GFR 99; Glucose 95 mg/dL (80-115); Potassium 3.8 mmol/L (3.5-5.1); Sodium 137 mmol/L (136-145)
[2022-06-17] MEDS ORDERED: PROPOFOL 200 MG/20 ML VIAL ONE ×2 (11:43→15:39)
[2022-06-17] MEDS ORDERED: Succinylcholine Chloride 100 MG/5 ML SYRINGE FS ONE (11:43)
[2022-06-17] MEDS ORDERED: Ondansetron PF 4 MG/2 ML Vial ONE ×2 (11:43→15:39)
[2022-06-17] MEDS ORDERED: Rocuronium Bromide 10 MG/ML (10ML VIAL) ONE ×2 (11:43→15:39)
[2022-06-17] MEDS ORDERED: Lidocaine 1% PF 5 ML VIAL ONE ×2 (11:43→15:39)
[2022-06-17] MEDS ORDERED: Morphine Sulfate 2 MG/ML SYRINGE SLOW IVP PRN ×2 (12:23→18:22)
[2022-06-17] MEDS ORDERED: Promethazine HCl 25 MG/ML VIAL IVPB PRN ×2 (12:23→18:22)
[2022-06-17] MEDS ORDERED: Promethazine HCl 25 MG/ML VIAL IM PRN ×3 (12:23→18:23)
[2022-06-17] MEDS ORDERED: Ondansetron HCl/PF 4 MG/2 ML Vial IVP PRN ×2 (12:23→18:22)
[2022-06-17] MEDS ORDERED: Fentanyl 250 MCG/5 ML VIAL ONE (14:56)
[2022-06-17] MEDS ORDERED: Famotidine/PF 20 mg/2ml Vial ONE (14:57)
[2022-06-17] MEDS ORDERED: Phenylephrine 10 MG/ML VIAL ONE ×2 (14:57→15:18)
[2022-06-17] MEDS ORDERED: SUGAMMADEX SODIUM 200 MG/2 ML VIAL ONE (14:57)
[2022-06-17] MEDS ORDERED: NEOSTIGMINE 3 MG/3 ML SYR 3 MG/3 ML SYRINGE ONE (15:39)
[2022-06-17] MEDS ORDERED: ePHEDrine 50 MG/ML VIAL ONE (15:39)
[2022-06-17] MEDS ORDERED: PHENYLEPHRINE-NS 100 MCG/ML 10 ML SYRINGE ONE (15:39)
[2022-06-17] MEDS ORDERED: Glycopyrrolate 0.2 MG/ML 5 ML SYRINGE ONE (15:39)
[2022-06-17] MEDS ORDERED: cefOXitin 2 GM VIAL ONE (16:02)
[2022-06-17] MEDS ORDERED: HYDROmorphone 2 MG/ML VIAL ONE (16:30)
[2022-06-17] MEDS ORDERED: Bupivacaine 0.25% HCL 30 ML VIAL ONE (18:12)
[2022-06-17] MEDS ORDERED: Ondansetron PF 4 MG/2 ML Vial IVP PRN ×2 (18:15→18:23)
[2022-06-17] MEDS ORDERED: hydrALAZINE 20 MG/ML VIAL SLOW IVP PRN (18:15)
[2022-06-17] MEDS ORDERED: Morphine 4 MG/ML VIAL SLOW IVP PRN (18:15)
[2022-06-17] MEDS ORDERED: Morphine 2 MG/ML VIAL SLOW IVP PRN (18:15)
[2022-06-17] MEDS ORDERED: HYDROmorphone 2 MG/ML VIAL SLOW IVP PRN (18:22)
[2022-06-17] MEDS ORDERED: Meperidine HCl/PF 25 MG/ML VIAL SLOW IVP PRN (18:22)
[2022-06-17] MEDS ORDERED: diphenhydrAMINE 25 MG CAP PO PRN (18:23)
[2022-06-17] MEDS ORDERED: Zolpidem Tartrate 5 MG TAB PO PRN (18:23)
[2022-06-17] MEDS ORDERED: Naloxone HCl 0.4 mg/ml Vial IV PRN (18:23)
[2022-06-17] MEDS ORDERED: diphenhydrAMINE 50 MG/ML VIAL IM PRN (18:23)
[2022-06-17] MEDS ORDERED: HYDROmorphone 10 mg/100 ml CADD IVPB PRN (18:23)
[2022-06-17] MEDS ORDERED: diphenhydrAMINE 50 MG/ML VIAL IVP PRN (18:23)
[2022-06-17] MEDS ORDERED: Communication Order-Pharmacy FS SCH (18:30)
[2022-06-17] MEDS ORDERED: D5 1/2 NS w/20 mEq KCL 1,000 ML ONE (18:44)
[2022-06-17 20:03] LABS: #Lymphocytes 0.8 thou/uL (1.20-3.40); #Monocytes 0.9 thou/uL (0.11-0.59); #Neutrophils 8.2 thou/uL (1.40-6.50); %Basophils 0.3 % (0.0-1.0); %Eosinophils 0.4 % (0.0-10.0); %Monocytes 9.2 % (0.0-10.0); %Neutrophils 82.1 % (42.0-75.0); Hemoglobin 13.1 g/dL (14.0-18.0); Mean Corpuscular HGB CONC 32.5 g/dL (32.0-36.0); Mean Corpuscular Hemoglobin 30.7 pg (27.0-31.0); Mean Corpuscular Volume 94.6 fl (78.0-98.0); Mean Platelet Volume 8.3 fL (7.4-10.4); Platelet Count 232 10x3/uL (130-400); RBC Distribution Width 12.4 % (11.5-14.5); Red Blood Cell (RBC) Count 4.25 mill/uL (4.70-6.10)
[2022-06-17] MEDS ORDERED: Albumin 25% 25 GM/100 ML BOT IVPB SCH (20:30)
[2022-06-17] MEDS ORDERED: Lactated Ringer's 1,000 ML IV SCH (20:30)
[2022-06-17] MEDS ORDERED: Lisinopril 10 MG TAB PO SCH (21:00)
[2022-06-17 21:21] VITALS: BMI 25.2
[2022-06-17] MEDS: D5 1/2 NS w/20 mEq KCL 1,000 ML IV SCH (23:20)
[2022-06-17] MEDS: Ketorolac Tromethamine 30 MG/ML VIAL IVP SCH (23:24)
[2022-06-17] MEDS: Carvedilol 25 MG TAB PO SCH (23:27)
[2022-06-17] MEDS: Famotidine 20 MG TAB PO SCH (23:28)
[2022-06-17] MEDS: Famotidine/PF 20 mg/2ml Vial SLOW IVP SCH (23:34)
[2022-06-17] MEDS: cefOXitin 2 GM in Sodium Chloride 0.9% 100 ML IVPB SCH (23:57)
[2022-06-18] MEDS: Albumin 25% 25 GM/100 ML BOT IVPB SCH ×4 (04:06→21:55)
[2022-06-18] MEDS: D5 1/2 NS w/20 mEq KCL 1,000 ML IV SCH ×4 (04:06→21:55)
[2022-06-18 04:11] LABS: #Lymphocytes 0.6 thou/uL (1.20-3.40); #Monocytes 0.8 thou/uL (0.11-0.59); #Neutrophils 7.3 thou/uL (1.40-6.50); %Basophils 0.1 % (0.0-1.0); %Eosinophils 0.2 % (0.0-10.0); %Lymphocytes 7.3 % (21.0-51.0); %Monocytes 8.6 % (0.0-10.0); %Neutrophils 83.8 % (42.0-75.0); Hemoglobin 10.6 g/dL (14.0-18.0); Mean Corpuscular Hemoglobin 31.4 pg (27.0-31.0); Mean Corpuscular Volume 95.2 fl (78.0-98.0); Mean Platelet Volume 8.6 fL (7.4-10.4); Platelet Count 161 10x3/uL (130-400); RBC Distribution Width 12.3 % (11.5-14.5); Red Blood Cell (RBC) Count 3.39 mill/uL (4.70-6.10); White Blood Cell (WBC) Count 8.7 10x3/uL (4.8-10.8)
[2022-06-18 05:18] LABS: Anion Gap 11 mmol/L (10-20); BUN (Urea Nitrogen) 12 mg/dL (8.4-25.7); Calc. Creatinine Clearance 78 mL/min (70-130); Calcium 7.6 mg/dL (7.8-10.44); Carbon Dioxide 28 mmol/L (23-31); Chloride 103 mmol/L (98-107); Estimated GFR 83; Glucose 146 mg/dL (80-115); Potassium 3.6 mmol/L (3.5-5.1); Sodium 138 mmol/L (136-145)
[2022-06-18] MEDS: Ketorolac Tromethamine 30 MG/ML VIAL IVP SCH ×4 (05:28→23:04)
[2022-06-18] MEDS: Ezetimibe 10 MG TAB PO SCH (08:35)
[2022-06-18] MEDS: Famotidine 20 MG TAB PO SCH ×2 (08:35→20:51)
[2022-06-18] MEDS: Aspirin 81 mg Enteric Coated Tablet PO SCH (08:35)
[2022-06-18] MEDS: Famotidine/PF 20 mg/2ml Vial SLOW IVP SCH ×2 (08:36→20:41)
[2022-06-18] MEDS: Carvedilol 25 MG TAB PO SCH ×2 (08:36→20:51)
[2022-06-18] MEDS ORDERED: Lisinopril 20 MG TAB PO SCH (09:00)
[2022-06-18] MEDS ORDERED: Loratadine 5 MG/5 ML UDCUP PO PRN (09:07)
[2022-06-18] MEDS ORDERED: Loratadine 10 MG TAB PO PRN (09:12)
[2022-06-18] MEDS: cefOXitin 2 GM in Sodium Chloride 0.9% 100 ML IVPB SCH (11:23)
[2022-06-18] MEDS ORDERED: traMADol HCl 50 MG TAB PO PRN (14:41)
[2022-06-18] MEDS ORDERED: HYDROcodone/Acetaminophen 10/325 mg Tablet PO PRN ×2 (14:42→14:43)
[2022-06-18] MEDS: traMADol HCl 50 MG TAB PO PRN ×2 (16:13→22:49)
[2022-06-18 16:59] LABS: #Eosinphils 0.2 thou/uL (0.0-0.7); #Lymphocytes 0.9 thou/uL (1.20-3.40); #Monocytes 1.2 thou/uL (0.11-0.59); #Neutrophils 8.6 thou/uL (1.40-6.50); %Basophils 0.2 % (0.0-1.0); %Eosinophils 1.4 % (0.0-10.0); %Lymphocytes 8.4 % (21.0-51.0); %Monocytes 11.4 % (0.0-10.0); %Neutrophils 78.6 % (42.0-75.0); Hemoglobin 10.6 g/dL (14.0-18.0); Mean Corpuscular HGB CONC 32.9 g/dL (32.0-36.0); Mean Corpuscular Hemoglobin 31.4 pg (27.0-31.0); Mean Corpuscular Volume 95.4 fl (78.0-98.0); Platelet Count 177 10x3/uL (130-400); RBC Distribution Width 12.7 % (11.5-14.5); Red Blood Cell (RBC) Count 3.38 mill/uL (4.70-6.10); White Blood Cell (WBC) Count 10.9 10x3/uL (4.8-10.8)
[2022-06-18 17:24] LABS: Magnesium 1.5 mg/dL (1.6-2.6); Phosphorus 2.7 mg/dL (2.3-4.7)
[2022-06-19 04:04] LABS: #Eosinphils 0.2 thou/uL (0.0-0.7); #Lymphocytes 0.6 thou/uL (1.20-3.40); #Monocytes 1.2 thou/uL (0.11-0.59); #Neutrophils 6.7 thou/uL (1.40-6.50); %Basophils 0.2 % (0.0-1.0); %Eosinophils 2.2 % (0.0-10.0); %Lymphocytes 7.1 % (21.0-51.0); %Monocytes 13.4 % (0.0-10.0); Hemoglobin 9.5 g/dL (14.0-18.0); Mean Corpuscular HGB CONC 33.6 g/dL (32.0-36.0); Mean Corpuscular Hemoglobin 31.5 pg (27.0-31.0); Mean Corpuscular Volume 93.8 fl (78.0-98.0); Mean Platelet Volume 8.5 fL (7.4-10.4); Platelet Count 142 10x3/uL (130-400); RBC Distribution Width 12.3 % (11.5-14.5); White Blood Cell (WBC) Count 8.6 10x3/uL (4.8-10.8)
[2022-06-19 04:21] LABS: Anion Gap 9 mmol/L (10-20); BUN (Urea Nitrogen) 8 mg/dL (8.4-25.7); Calc. Creatinine Clearance 97 mL/min (70-130); Calcium 7.9 mg/dL (7.8-10.44); Carbon Dioxide 25 mmol/L (23-31); Chloride 101 mmol/L (98-107); Estimated GFR 99; Glucose 103 mg/dL (80-115); Potassium 3.3 mmol/L (3.5-5.1); Sodium 132 mmol/L (136-145)
[2022-06-19] MEDS: Ketorolac Tromethamine 30 MG/ML VIAL IVP SCH ×4 (05:01→23:31)
[2022-06-19] MEDS: D5 1/2 NS w/20 mEq KCL 1,000 ML IV SCH (05:01)
[2022-06-19] MEDS ORDERED: traMADol HCl 50 MG TAB PO PRN ×3 (08:15→08:45)
[2022-06-19] MEDS ORDERED: Acetaminophen 500 MG TAB PO SCH (08:15)
[2022-06-19] MEDS: Aspirin 81 mg Enteric Coated Tablet PO SCH (08:30)
[2022-06-19] MEDS: Ezetimibe 10 MG TAB PO SCH (08:30)
[2022-06-19] MEDS ORDERED: Potassium Chloride 20 MEQ TAB PO SCH ×2 (08:30→17:00)
[2022-06-19] MEDS: Carvedilol 25 MG TAB PO SCH ×2 (08:31→19:40)
[2022-06-19] MEDS: Famotidine 20 MG TAB PO SCH ×2 (08:31→19:39)
[2022-06-19] MEDS: Gabapentin 100 MG CAP PO SCH ×3 (08:37→19:40)
[2022-06-19] MEDS: Acetaminophen 500 MG TAB PO SCH ×2 (18:09→23:30)
[2022-06-19] MEDS: traMADol HCl 50 MG TAB PO PRN (18:11)
[2022-06-20] MEDS: traMADol HCl 50 MG TAB PO PRN ×2 (05:27→11:41)
[2022-06-20] MEDS: Acetaminophen 500 MG TAB PO SCH ×2 (05:27→11:42)
[2022-06-20] MEDS: Ketorolac Tromethamine 30 MG/ML VIAL IVP SCH ×2 (05:29→12:41)
[2022-06-20 07:15] LABS: Anion Gap 8 mmol/L (10-20); BUN (Urea Nitrogen) 6 mg/dL (8.4-25.7); Calc. Creatinine Clearance 113 mL/min (70-130); Calcium 8.5 mg/dL (7.8-10.44); Carbon Dioxide 24 mmol/L (23-31); Chloride 106 mmol/L (98-107); Estimated GFR 102; Glucose 93 mg/dL (80-115); Potassium 4.2 mmol/L (3.5-5.1); Sodium 134 mmol/L (136-145)
[2022-06-20] MEDS: Aspirin 81 mg Enteric Coated Tablet PO SCH (08:50)
[2022-06-20] MEDS: Famotidine 20 MG TAB PO SCH (08:50)
[2022-06-20] MEDS: Carvedilol 25 MG TAB PO SCH (08:51)
[2022-06-20] MEDS: Ezetimibe 10 MG TAB PO SCH (08:51)
[2022-06-20] MEDS: Gabapentin 100 MG CAP PO SCH ×2 (08:51→14:47)
[2022-06-20] MEDS ORDERED: FLU VACC QS2022-23(6MOS UP)/PF 60 MCG/0.5 ML SYRINGE IM ONE (09:00)
[2022-06-20 13:26] VITALS: BP 134/80; TEMP 98.1
[2022-06-21] MEDS ORDERED: Ibuprofen 600 MG TAB PO PRN (06:00)
== END 2022-06-20 13:30 | disposition home or self-care (01) | DRG 330 ==
LOC: SDC 08:48 → IMCU/EMU 20:37 → SURG A 06-19 13:00
PROVIDERS: ADMIT Surgery; ATTEND Specialist
PROC: 0DTL0ZZ Resection of Transverse Colon, Open Approach (ICD-10-PCS; principal; 2022-06-17)
PROC: 0DBL8ZX Excision of Transverse Colon, Via Natural or Artificial Opening Endoscopic, Diagnostic (ICD-10-PCS; 2022-06-17)
DX: C18.4 Malignant neoplasm of transverse colon (principal); C77.2 Secondary and unspecified malignant neoplasm of intra-abdominal lymph nodes; Z23 Encounter for immunization; I25.10 Atherosclerotic heart disease of native coronary artery without angina pectoris; I25.5 Ischemic cardiomyopathy; I11.0 Hypertensive heart disease with heart failure; I50.9 Heart failure, unspecified; J30.9 Allergic rhinitis, unspecified; E78.00 Pure hypercholesterolemia, unspecified; E87.6 Hypokalemia; Z88.2 Allergy status to sulfonamides; Z95.810 Presence of automatic (implantable) cardiac defibrillator; Z79.899 Other long term (current) drug therapy; Z79.82 Long term (current) use of aspirin; Z90.49 Acquired absence of other specified parts of digestive tract; Z98.890 Other specified postprocedural states; I25.2 Old myocardial infarction
CPT/HCPCS: 36415; 74178; 80048; 82378; 82565; 83735; 84100; 85025; 88305; 88309; 90471; 90686; 93005; 93010; A4649; C1713; C1776; G0008; J0694; J1170; J1650; J1885; J2370; J2405; J2704; J3010; J3480; J3490; P9047; Q9967; S0020; S0028

== ENCOUNTER 2022-12-16 07:38 | Outpatient (CLI) | payer BC ==
[2022-12-16] MEDS ORDERED: Iopamidol 370 76% 100 ML VIAL ONE (12:44)
== END 2022-12-16 07:39 | disposition home or self-care (01) ==
LOC: CT 07:38
PROVIDERS: ATTEND Surgery
DX: K43.9 Ventral hernia without obstruction or gangrene (principal)
CPT/HCPCS: 74177; 82565

== ENCOUNTER 2023-01-07 06:46 | Outpatient (CLI) | payer BC ==
[2023-01-07 08:16] LABS: Hemoglobin 10.7 g/dL (13.5-17.5); Mean Corpuscular HGB CONC 30.1 g/dL (32.0-36.0); Mean Corpuscular Hemoglobin 23.7 pg (27.0-33.0); Mean Corpuscular Volume 78.7 fl (81.2-95.1); Red Blood Cell (RBC) Count 4.51 10x6/uL (4.32-5.72); White Blood Cell (WBC) Count 7.4 10x3/uL (3.5-10.5)
[2023-01-07 08:17] LABS: Platelet Count 315 10x3/uL (150-450); RBC Distribution Width 16.7 % (11.5-14.5)
[2023-01-07 08:19] LABS: MDiff Complete? YES
[2023-01-07 08:31] LABS: Anion Gap 14 mmol/L (10-20); BUN (Urea Nitrogen) 14 mg/dL (8.4-25.7); Calc. Creatinine Clearance 0 mL/min (70-130); Carbon Dioxide 23 mmol/L (23-31); Chloride 108 mmol/L (98-107); Potassium 4.4 mmol/L (3.5-5.1); Sodium 141 mmol/L (136-145)
[2023-01-07 08:32] LABS: Calcium 8.9 mg/dL (7.8-10.44); Estimated GFR 99; Glucose 92 mg/dL (80-115)
[2023-01-07 09:06] LABS: Band 1 % (5-11); Eosinophils 7 % (0-10); Lymphocytes 28 % (21-51); Monocytes 10 % (0-10); Neutrophil 53 % (42-75)
[2023-01-07 09:08] LABS: Anisocytosis SLIGHT = 6-15 cells (100X) (0-5/hpf)
[2023-01-07 09:09] LABS: Hypochromia SLIGHT = 6-15 cells (100X) (0-5/hpf); Platelet Adequacy Comment Appears Adequate
== END 2023-01-07 06:47 | disposition home or self-care (01) ==
LOC: LABBT 06:46
PROVIDERS: ATTEND Surgery
DX: Z01.818 Encounter for other preprocedural examination (principal); K43.2 Incisional hernia without obstruction or gangrene
CPT/HCPCS: 80048; 85025; 93005; 93010

== ENCOUNTER 2023-01-12 06:27 | Day surgery (SDC) | payer BC ==
[2023-01-07 07:47] VITALS: BMI 27.8
[2023-01-12] MEDS ORDERED: EPINEPHrine 1 MG/ML AMP ONE (08:16)
[2023-01-12] MEDS ORDERED: Bupivacaine 0.25% HCL 30 ML VIAL ONE (08:16)
[2023-01-12] MEDS ORDERED: fentaNYL PF 100 MCG/2 ML SYRINGE ONE (08:47)
[2023-01-12] MEDS ORDERED: SUGAMMADEX SODIUM 200 MG/2 ML VIAL ONE (08:47)
[2023-01-12] MEDS ORDERED: Phenylephrine 10 MG/ML VIAL ONE (08:47)
[2023-01-12] MEDS ORDERED: Vasopressin 20 UNITS/ML VIAL ONE (08:47)
[2023-01-12] MEDS ORDERED: Sodium Chloride 0.9% 100 ML ONE (08:55)
[2023-01-12] MEDS ORDERED: CEFAZOLIN 2 GM VIAL ONE (08:55)
[2023-01-12] MEDS ORDERED: PHENYLEPHRINE-NS 100 MCG/ML 10 ML SYRINGE ONE (09:05)
[2023-01-12] MEDS ORDERED: PROPOFOL 200 MG/20 ML VIAL ONE (09:05)
[2023-01-12] MEDS ORDERED: Ondansetron PF 4 MG/2 ML Vial ONE (09:05)
[2023-01-12] MEDS ORDERED: Rocuronium Bromide 10 MG/ML (10ML VIAL) ONE (09:05)
[2023-01-12] MEDS ORDERED: Lidocaine 1% PF 5 ML VIAL ONE (09:05)
[2023-01-12] MEDS ORDERED: Dexamethasone 20 MG/5 ML VIAL ONE (09:05)
[2023-01-12] MEDS ORDERED: ePHEDrine Sulfate 50 MG/10 ML VIAL ONE (09:05)
[2023-01-12] MEDS ORDERED: fentaNYL 50 mcg/mL 1 mL Vial ONE ×3 (10:52→11:13)
[2023-01-12] MEDS ORDERED: HYDROcodone/Acetaminophen 5/325 mg Tablet ONE (11:44)
== END 2023-01-12 13:14 | disposition home or self-care (01) ==
LOC: SDC 06:27
PROVIDERS: ATTEND Surgery
PROC: 3E0M05Z Introduction of Adhesion Barrier into Peritoneal Cavity, Open Approach (ICD-10-PCS; principal; 2023-01-12)
PROC: 0WQF0ZZ Repair Abdominal Wall, Open Approach (ICD-10-PCS; principal; 2023-01-12)
DX: K43.2 Incisional hernia without obstruction or gangrene (principal); I25.10 Atherosclerotic heart disease of native coronary artery without angina pectoris; I25.5 Ischemic cardiomyopathy; E78.5 Hyperlipidemia, unspecified; I11.0 Hypertensive heart disease with heart failure; I50.9 Heart failure, unspecified; E11.9 Type 2 diabetes mellitus without complications; Z90.49 Acquired absence of other specified parts of digestive tract; Z88.2 Allergy status to sulfonamides; W55.01XA Bitten by cat, initial encounter; Z79.899 Other long term (current) drug therapy
CPT/HCPCS: C1781; J0171; J1100; J2370; J2405; J2704; J3010; J3490; S0020

== ENCOUNTER 2023-06-10 01:13 | Emergency (ER) | payer BC ==
[2023-06-10 01:56] LABS: #Eosinphils 0.1 thou/uL (0.0-0.7); #Monocytes 0.1 thou/uL (0.11-0.59); #Neutrophils 2.5 thou/uL (1.40-6.50); %Basophils 0.6 % (0.0-1.0); %Eosinophils 1.9 % (0.0-10.0); %Monocytes 2.6 % (0.0-10.0); %Neutrophils 78.9 % (42.0-75.0); Hematocrit 43.8 % (42.0-52.0); Hemoglobin 13.3 g/dL (14.0-18.0); Mean Corpuscular HGB CONC 30.4 g/dL (32.0-36.0); Mean Corpuscular Hemoglobin 25.9 pg (27.0-31.0); Mean Corpuscular Volume 85.4 fl (78.0-98.0); Mean Platelet Volume 10.3 fL (7.4-10.4); Platelet Count 173 10x3/uL (130-400); RBC Distribution Width 17.8 % (11.5-14.5); Red Blood Cell (RBC) Count 5.13 mill/uL (4.70-6.10); White Blood Cell (WBC) Count 3.1 10x3/uL (4.8-10.8)
[2023-06-10] MEDS ORDERED: dilTIAZem 25 MG/5 ML VIAL ONE (01:58)
[2023-06-10 02:23] LABS: Bacteria/HPF 2+ HPF (None Seen); Bilirubin Negative (Negative); Blood, Urine 2+ (Negative); CAUTI Indications for Culture Immunosuppressed; Clarity Clear (Clear); Glucose, Urine (Dipstick) Normal (Negative); Ketone, Urine Negative (Negative); Leukocyte 75 Leu/uL (Negative); Nitrite Negative (Negative); Protein, Urine (Dipstick) 70 mg/dL (Neg-Trace); Specific Gravity, Urine 1.029 (1.002-1.036); Squamous Epithelial 0-3 HPF (0-3); Urobilinogen Normal mg/dL (Less than 2); WBC/HPF 21-50 HPF (0-3); pH, Urine 5.5 (5.0-9.0)
[2023-06-10] MEDS ORDERED: Acetaminophen 325 MG TAB ONE (02:24)
[2023-06-10] MEDS ORDERED: Piperacillin/Tazobactam 3.375 GM VIAL ONE (02:24)
[2023-06-10 02:29] LABS: AST (SGOT) 20 U/L (5-34); Actual Bicarbonate (HCO3v) 20.5 mEq/L (22-28); Albumin 4.3 g/dL (3.4-4.8); Alkaline Phosphatase 109 U/L (40-110); Anion Gap 22 mmol/L (10-20); BUN (Urea Nitrogen) 12 mg/dL (8.4-25.7); Base Excess -0.7 mEq/L (-2.0 to +3.0); Bilirubin, Total 1.1 mg/dL (0.2-1.2); Calc. Creatinine Clearance 0 mL/min (70-130); Calcium 9.3 mg/dL (7.8-10.44); Calcium, Ionized (venous) 1.06 mmol/L (1.16-1.32); Carbon Dioxide 14 mmol/L (23-31); Chloride 103 mmol/L (98-107); Chloride (VBG) 101 mmol/L (98-106); Estimated GFR 97; Globulin 3.6 g/dL (2.4-3.5); Glucose 90 mg/dL (80-115); Hematocrit-VBG 36 % (42.0-52.0); Hemoglobin (Hb) 12.3 g/dL (13.1-17.2); Potassium 4.2 mmol/L (3.5-5.1); Potassium (VBG) 3.56 mmol/L (3.70-5.30); Protein, Total 7.9 g/dL (5.8-8.1); Sodium 133 mmol/L (133-146); Sodium 135 mmol/L (136-145); pH (venous) 7.534 (7.32-7.43)
[2023-06-10 02:30] LABS: Urine Culture Reflex Yes Yes
[2023-06-10 02:45] LABS: INR-International Normal Ratio 1.2; Prothrombin Time 15.9 sec (12.0-14.7)
[2023-06-10 02:46] LABS: PTT 33.9 sec (22.9-36.1)
[2023-06-10 02:49] LABS: Troponin I 0.012 ng/mL (< 0.028)
[2023-06-10 02:56] LABS: ALT (SGPT) 16 U/L (8-55); Lipase 64 U/L (8-78)
[2023-06-10 03:12] LABS: SARS-CoV-2 NAA Rapid Test Not Detected (NotDetected)
[2023-06-10] MEDS ORDERED: Vancomycin (BATCH) 1.5 GM in Premix 1 BAG IVPB SCH (04:15)
[2023-06-10 05:36] LABS: Lactic Acid 1.7 mmol/L (0.5-2.2)
[2023-06-10] MEDS ORDERED: Iopamidol-370 76% 500 ML MDV (1 ML CHARGE) ONE (10:00)
== END 2023-06-10 17:03 | disposition short-term general hospital (02) ==
LOC: ERS 01:13
DX: R50.82 Postprocedural fever (principal); N39.0 Urinary tract infection, site not specified; I11.0 Hypertensive heart disease with heart failure; I50.9 Heart failure, unspecified; E78.5 Hyperlipidemia, unspecified; Z79.82 Long term (current) use of aspirin; Z79.899 Other long term (current) drug therapy
CPT/HCPCS: 0241U; 36415; 36416; 71045; 71275; 80053; 81001; 82805; 83605; 83690; 84484; 85025; 85610; 85730; 87040; 87077; 87086; 87149; 87186; 93005; 96365; 96366; 96367; J2543; J3370

== ENCOUNTER 2024-03-24 13:50 | Outpatient (CLI) | payer BC ==
[2024-03-24 14:46] LABS: Hemoglobin 12.7 g/dL (14.0-18.0); Mean Corpuscular HGB CONC 32.6 g/dL (32.0-36.0); Mean Corpuscular Hemoglobin 29.9 pg (27.0-31.0); Mean Corpuscular Volume 91.8 fL (78.0-98.0); Mean Platelet Volume 11.1 fL (7.4-10.4); Platelet Count 195 10x3/uL (130-400); RBC Distribution Width 14.9 % (11.5-14.5); Red Blood Cell (RBC) Count 4.25 mill/uL (4.70-6.10)
[2024-03-24 15:03] LABS: INR-International Normal Ratio 1.1; Prothrombin Time 13.7 sec (12.0-14.7)
[2024-03-24 15:04] LABS: Anion Gap 9 mmol/L (10-20); BUN (Urea Nitrogen) 14 mg/dL (8.4-25.7); Calc. Creatinine Clearance 0 mL/min (70-130); Calcium 9.2 mg/dL (7.8-10.44); Carbon Dioxide 26 mmol/L (23-31); Chloride 107 mmol/L (98-107); Estimated GFR 86; Glucose 93 mg/dL (80-115); PTT 31.7 sec (22.9-36.1); Potassium 4.2 mmol/L (3.5-5.1); Sodium 138 mmol/L (136-145)
== END 2024-03-24 13:51 | disposition home or self-care (01) ==
LOC: LABBT 13:50
PROVIDERS: ATTEND Internal Medicine Cardiovascular Disease
DX: Z01.818 Encounter for other preprocedural examination (principal); I50.22 Chronic systolic (congestive) heart failure
CPT/HCPCS: 80048; 85027; 85610; 85730; 93005; 93010

== ENCOUNTER 2024-03-27 05:56 | Day surgery (SDC) | payer BC ==
[2024-03-24 14:27] VITALS: BMI 27.3
[2024-03-27] MEDS ORDERED: CEFAZOLIN 2 GM VIAL ONE (07:34)
[2024-03-27] MEDS ORDERED: Gentamicin 80 MG/2 ML VIAL ONE (07:34)
[2024-03-27] MEDS ORDERED: fentaNYL 50 mcg/mL 1 mL Vial ONE (09:23)
[2024-03-27] MEDS ORDERED: Midazolam HCl 2 mg/2 ml Vial ONE (09:23)
[2024-03-27] MEDS ORDERED: PROPOFOL 200 MG/20 ML VIAL ONE (09:27)
[2024-03-27] MEDS ORDERED: Lidocaine 1% PF 5 ML VIAL ONE (09:27)
== END 2024-03-27 12:30 | disposition home or self-care (01) ==
LOC: SDC 05:56
PROVIDERS: ATTEND Internal Medicine Cardiovascular Disease
PROC: 0JPT3FZ Removal of Subcutaneous Defibrillator Lead from Trunk Subcutaneous Tissue and Fascia, Percutaneous Approach (ICD-10-PCS; principal; 2024-03-27)
PROC: 0JH63FZ Insertion of Subcutaneous Defibrillator Lead into Chest Subcutaneous Tissue and Fascia, Percutaneous Approach (ICD-10-PCS; principal; 2024-03-27)
PROC: 0JH608Z Insertion of Defibrillator Generator into Chest Subcutaneous Tissue and Fascia, Open Approach (ICD-10-PCS; principal; 2024-03-27)
PROC: 0JPT3PZ Removal of Cardiac Rhythm Related Device from Trunk Subcutaneous Tissue and Fascia, Percutaneous Approach (ICD-10-PCS; 2024-03-27)
DX: I49.01 Ventricular fibrillation (principal); I47.29 Other ventricular tachycardia; I11.0 Hypertensive heart disease with heart failure; I50.22 Chronic systolic (congestive) heart failure; I44.7 Left bundle-branch block, unspecified; I25.10 Atherosclerotic heart disease of native coronary artery without angina pectoris; I10 Essential (primary) hypertension; Z95.810 Presence of automatic (implantable) cardiac defibrillator; Z98.61 Coronary angioplasty status; Z79.82 Long term (current) use of aspirin; Z79.899 Other long term (current) drug therapy; Z90.49 Acquired absence of other specified parts of digestive tract; Z98.890 Other specified postprocedural states; Z88.2 Allergy status to sulfonamides
CPT/HCPCS: 33264; 93005; 93010; 93641; C1882; J1580; J2250; J2704; J3010